=== PATIENT | male | born 1945 | race Caucasian/White ===

== ENCOUNTER 2016-10-03 19:46 | Emergency (ER) | payer MEDICARE, MEDICAID ==
--- NOTE | 2016-10-03 22:47 | EDDOCDS ---
Physician Documentation [facility] Name: Ken Rudd Age: 71 yrs Sex: Male : 1945 Arrival Date: 10/03/2016 Time: 19:46 Bed TR7 Private MD: Maximino Rockwell A. Disposition: 10/03/16 22:33 Discharged to Home/Self Care. Impression: Other abdominal pain - right sided, NOW RESOLVED . - Condition is Stable. - Discharge Instructions: Abdominal Pain, Adult, Constipation, Adult, Shingles. - Prescriptions for Miralax 17 gram/dose - take 17 gram by ORAL route once daily As needed dilute in 8 ounces of water or juice; 1 bottle. - Medication Reconciliation, Local Pharmacy Hours form. - Follow up: Maximino Rockwell; When: Call to arrange an appointment; Reason: Recheck today's complaints, Continuance of care. - Problem is new. - Symptoms are resolved. Historical: - Allergies: no known allergies; - Home Meds: 1. atenolol 100 mg Oral tab 1 tab once daily 2. Norvasc 10 mg Oral tab 1 tab once daily 3. acetaminophen-codeine 300-30 mg Oral tab every 4-6 hours 4. valacyclovir 500 mg Oral tab 5. Cozaar 50 mg Oral tab 1 tab once daily 6. atorvastatin 20 mg oral tab 1 tab once daily 7. hydrochlorothiazide 25 mg Oral tab 1 tab once daily 8. Motrin 800 mg Oral tab 1 tab 3 times per day - PMHx: Hypertension; Hypercholesterolemia; Shingles; - PSHx: none; - Social history: Smoking status: Patient states former smoker of tobacco. No barriers to communication noted, The patient speaks fluent Faroese. - Family history: Not pertinent. - : The pt / caregiver states he / she is not on anticoagulants. Home medication list is obtained from the patient. - Exposure Risk Screening:: None identified. Vital Signs: 10/03 19:47 BP 158 / 75; Pulse 65; Resp 18 S; Temp 97.9; Pulse Ox 99% on R/A; Weight 112.94 kg / dd6 248.99 lbs (R); Height 6 ft. 3 in. (190.50 cm) (R); 19:47 Body Mass Index 31.12 (112.94 kg, 190.50 cm) dd6 MDM: 22:33 Magnesium Citrate Liquid 300 ml PO once; Dispense home with pt. ordered. mo1 Administered Medications: 22:44 Drug: Magnesium Citrate 300 ml [magnesium citrate oral solution (300 mL)] Route: PO; ms2 Signatures: Tommie LooimsRN RN ms2 Sandy Swann RN RN rs3 Parviz Ramos PA PA mo1 MTDD
--- NOTE | 2016-10-03 22:47 | EDDOCDS ---
Nurse's Notes [facility] Name: Ken Rudd Age: 71 yrs Sex: Male : 1945 Arrival Date: 10/03/2016 Time: 19:46 Bed TR7 Private MD: Maximino Rockwell A. Diagnosis: Other abdominal pain-right sided, NOW RESOLVED Presentation: 10/03 19:49 Presenting complaint: Patient states: Was seen [facility]\ [facility] for constipation for rs3 a week. Sent her further work up r/o obstruction. Adult Sepsis Screening: The patient does not have new or worsening altered mentation. Patient's respiratory rate is less than 22. Systolic blood pressure is greater than 100. Patient has a qSOFA score of 0- Negative Sepsis Screen. Suicide/Homicide risk assessment- the patient denies having any suicidal and/or homicidal ideations and does not present with any other emotional, behavioral or mental health complaints. Status: Patient is not a student services representative or dependent. Transition of care: patient was not received from another setting of care. 19:49 Acuity: LYLY Level 3 rs3 19:49 Method Of Arrival: Walkin/Carried/Asstd rs3 Triage Assessment: 19:55 General: Appears in no apparent distress. Pain: Location: abdomen. GI: Reports lower rs3 abdominal pain. Historical: - Allergies: no known allergies; - Home Meds: 1. atenolol 100 mg Oral tab 1 tab once daily 2. Norvasc 10 mg Oral tab 1 tab once daily 3. acetaminophen-codeine 300-30 mg Oral tab every 4-6 hours 4. valacyclovir 500 mg Oral tab 5. Cozaar 50 mg Oral tab 1 tab once daily 6. atorvastatin 20 mg oral tab 1 tab once daily 7. hydrochlorothiazide 25 mg Oral tab 1 tab once daily 8. Motrin 800 mg Oral tab 1 tab 3 times per day - PMHx: Hypertension; Hypercholesterolemia; Shingles; - PSHx: none; - Social history: Smoking status: Patient states former smoker of tobacco. No barriers to communication noted, The patient speaks fluent Botswanan. - Family history: Not pertinent. - : The pt / caregiver states he / she is not on anticoagulants. Home medication list is obtained from the patient. - Exposure Risk Screening:: None identified. Screenin:34 Screening information is obtained from the patient. Fall risk: No risks identified. ms2 Assistance ADL's: requires no assistance with activities of daily living. Abuse/DV Screen: The patient / caregiver reports he/she is: not in a situation that causes fear, pain or injury. Nutritional screening: No deficits noted. Advance Directives: Currently, there is. Advance Directives: Currently, there is no health care proxy. There is no active DNR order. There is no living will. There is no Power of Laundry Or Dry Cleaners Counter Clerk. Advance directive information has not previously been placed in an [facility] medical record. Further advance directive information is declined. home support is adequate. Assessment: 21:33 General: Appears in no apparent distress, Behavior is cooperative. Pain: Denies pain. ms2 Neurological: Level of Consciousness is awake, alert, obeys commands. Respiratory: No deficits noted. Airway is patent Respiratory effort is even, unlabored, Respiratory pattern is regular, symmetrical. GI: Abdomen is non- distended. Derm: Skin is pink, warm & dry. Musculoskeletal: Range of motion intact in all extremities. 22:43 General: Appears in no apparent distress, Behavior is cooperative. Neurological: Level ms2 of Consciousness is awake, alert, obeys commands. Respiratory: No deficits noted. Airway is patent Respiratory effort is even, unlabored, Respiratory pattern is regular, symmetrical. GI: Abdomen is non- distended. Derm: Skin is pink, warm & dry. Musculoskeletal: Range of motion intact in all extremities. Vital Signs: 19:47 BP 158 / 75; Pulse 65; Resp 18 S; Temp 97.9; Pulse Ox 99% on R/A; Weight 112.94 kg (R); dd6 Height 6 ft. 3 in. (190.50 cm) (R); 19:47 Body Mass Index 31.12 (112.94 kg, 190.50 cm) dd6 Vitals: 19:47 Log In Time: October 03, 2016 at 19:45. dd6 ED Course: 19:47 Patient visited by Elver Solitario PCA. dd6 19:47 Maximino Rockwell is Private Physician. dd6 19:47 Patient moved to Waiting dd6 19:48 Patient moved to Pre RCE dd6 19:51 Triage Initiated rs3 21:33 Patient visited by Tommie Loomis RN. ms2 21:33 Patient moved to Triage 2 ms2 21:34 The patient / caregiver is instructed regarding the plan of care and ED course. ms2 21:55 Parviz Ramos PA is PHCP. mo1 21:55 Xavier Bravo DO is Attending Physician. mo1 22:06 Patient visited by Parviz Ramos PA. mo1 22:32 Maximino Rockwell is Referral Physician. mo1 22:36 Patient visited by Tommie Loomis RN. ms2 22:43 Patient moved to TR7 ct3 22:44 The patient / caregiver is instructed regarding the plan of care and ED course. ms2 22:44 No IV's were initiated during this patient's visit. No procedures done that require ms2 assistance. Administered Medications: 22:44 Drug: Magnesium Citrate 300 ml [magnesium citrate oral solution (300 mL)] Route: PO; ms2 Order Results: There are currently no results for this order. Outcome: 22:33 Discharge ordered by Provider. mo1 22:44 Discharge Assessment: patient administered narcotics - no. The following High Risk ms2 Discharge criteria are identified: None. Discharged to home ambulatory. Condition: stable. Discharge instructions given to patient, Instructed on discharge instructions, follow up and referral plans. medication usage, Demonstrated understanding of instructions, medications, Pt was receptive of discharge instructions/ teaching. Prescriptions given X one faxed. No special radiology studies were completed. Property sent home with patient. 22:45 Patient left the ED. ms2 Signatures: Tommie Loomis RN RN ms2 Elver Solitario, RISK MANAGER RISK MANAGER dd6 Sandy Swann RN RN rs3 Iram Brown, RISK MANAGER RISK MANAGER ct3 Parviz Ramos PA PA mo1 MTDD
--- NOTE | 2016-10-05 23:46 | EDDOCDS ---
Physician Documentation [facility] Name: Ken Rudd Age: 71 yrs Sex: Male : 1945 Arrival Date: 10/03/2016 Time: 19:46 Bed TR7 Private MD: Maximino Rockwell A. Disposition: 10/03/16 22:33 Discharged to Home/Self Care. Impression: Other abdominal pain - right sided, NOW RESOLVED . - Condition is Stable. - Discharge Instructions: Abdominal Pain, Adult, Constipation, Adult, Shingles. - Prescriptions for Miralax 17 gram/dose - take 17 gram by ORAL route once daily As needed dilute in 8 ounces of water or juice; 1 bottle. - Medication Reconciliation, Local Pharmacy Hours form. - Follow up: Maximino Rockwell; When: Call to arrange an appointment; Reason: Recheck today's complaints, Continuance of care. - Problem is new. - Symptoms are resolved. Historical: - Allergies: no known allergies; - Home Meds: 1. atenolol 100 mg Oral tab 1 tab once daily 2. Norvasc 10 mg Oral tab 1 tab once daily 3. acetaminophen-codeine 300-30 mg Oral tab every 4-6 hours 4. valacyclovir 500 mg Oral tab 5. Cozaar 50 mg Oral tab 1 tab once daily 6. atorvastatin 20 mg oral tab 1 tab once daily 7. hydrochlorothiazide 25 mg Oral tab 1 tab once daily 8. Motrin 800 mg Oral tab 1 tab 3 times per day - PMHx: Hypertension; Hypercholesterolemia; Shingles; - PSHx: none; - Social history: Smoking status: Patient states former smoker of tobacco. No barriers to communication noted, The patient speaks fluent Danish. - Family history: Not pertinent. - : The pt / caregiver states he / she is not on anticoagulants. Home medication list is obtained from the patient. - Exposure Risk Screening:: None identified. Vital Signs: 10/03 19:47 BP 158 / 75; Pulse 65; Resp 18 S; Temp 97.9; Pulse Ox 99% on R/A; Weight 112.94 kg / dd6 248.99 lbs (R); Height 6 ft. 3 in. (190.50 cm) (R); 19:47 Body Mass Index 31.12 (112.94 kg, 190.50 cm) dd6 MDM: 22:33 Magnesium Citrate Liquid 300 ml PO once; Dispense home with pt. ordered. mo1 22:48 [facility] Payment Agreement was scanned into [employer] and attached to record. jp5 22:48 Financial registration complete. jp5 10/04 12:50 T-Sheet-- Draft Copy was scanned into [employer] and attached to record. gb 12:51 Radiology Report was scanned into [employer] and attached to record. gb Administered Medications: 10/03 22:44 Drug: Magnesium Citrate 300 ml [magnesium citrate oral solution (300 mL)] Route: PO; ms2 Signatures: Tommie LoomisRN RN ms2 Sharon Goss, Reg Reg gb Sandy Swann RN RN rs3 Parviz Ramos PA PA mo1 Patricia Guerin jp5 The chart was reviewed and I authenticate all verbal orders and agree with the evaluation and treatment provided.Attachments: 22:48 [facility] Payment Agreement jp5 10/04 12:50 T-Sheet-- Draft Copy gb Chart Complete MTDD
--- NOTE | 2016-10-05 23:46 | EDDOCDS ---
Physician Documentation [facility] Name: Ken Rudd Age: 71 yrs Sex: Male : 1945 Arrival Date: 10/03/2016 Time: 19:46 Bed TR7 Private MD: Maximino Rockwell A. Disposition: 10/03/16 22:33 Discharged to Home/Self Care. Impression: Other abdominal pain - right sided, NOW RESOLVED . - Condition is Stable. - Discharge Instructions: Abdominal Pain, Adult, Constipation, Adult, Shingles. - Prescriptions for Miralax 17 gram/dose - take 17 gram by ORAL route once daily As needed dilute in 8 ounces of water or juice; 1 bottle. - Medication Reconciliation, Local Pharmacy Hours form. - Follow up: Maximino Rockwell; When: Call to arrange an appointment; Reason: Recheck today's complaints, Continuance of care. - Problem is new. - Symptoms are resolved. Historical: - Allergies: no known allergies; - Home Meds: 1. atenolol 100 mg Oral tab 1 tab once daily 2. Norvasc 10 mg Oral tab 1 tab once daily 3. acetaminophen-codeine 300-30 mg Oral tab every 4-6 hours 4. valacyclovir 500 mg Oral tab 5. Cozaar 50 mg Oral tab 1 tab once daily 6. atorvastatin 20 mg oral tab 1 tab once daily 7. hydrochlorothiazide 25 mg Oral tab 1 tab once daily 8. Motrin 800 mg Oral tab 1 tab 3 times per day - PMHx: Hypertension; Hypercholesterolemia; Shingles; - PSHx: none; - Social history: Smoking status: Patient states former smoker of tobacco. No barriers to communication noted, The patient speaks fluent Croatian. - Family history: Not pertinent. - : The pt / caregiver states he / she is not on anticoagulants. Home medication list is obtained from the patient. - Exposure Risk Screening:: None identified. Vital Signs: 10/03 19:47 BP 158 / 75; Pulse 65; Resp 18 S; Temp 97.9; Pulse Ox 99% on R/A; Weight 112.94 kg / dd6 248.99 lbs (R); Height 6 ft. 3 in. (190.50 cm) (R); 19:47 Body Mass Index 31.12 (112.94 kg, 190.50 cm) dd6 MDM: 22:33 Magnesium Citrate Liquid 300 ml PO once; Dispense home with pt. ordered. mo1 22:48 [facility] Payment Agreement was scanned into [employer] and attached to record. jp5 22:48 Financial registration complete. jp5 10/04 12:50 T-Sheet-- Draft Copy was scanned into [employer] and attached to record. gb 12:51 Radiology Report was scanned into [employer] and attached to record. gb Administered Medications: 10/03 22:44 Drug: Magnesium Citrate 300 ml [magnesium citrate oral solution (300 mL)] Route: PO; ms2 Signatures: Tommie LoomisRN RN ms2 Sharon Goss, Reg Reg gb Sandy Swann RN RN rs3 Parviz Ramos PA PA mo1 Patricia Guerin jp5 The chart was reviewed and I authenticate all verbal orders and agree with the evaluation and treatment provided.Attachments: 22:48 [facility] Payment Agreement jp5 10/04 12:50 T-Sheet-- Draft Copy gb Chart Complete MTDD
--- NOTE | 2016-10-05 23:46 | EDDOCDS ---
Nurse's Notes [facility] Name: Ken Rudd Age: 71 yrs Sex: Male : 1945 Arrival Date: 10/03/2016 Time: 19:46 Bed TR7 Private MD: Maximino Rockwell A. Diagnosis: Other abdominal pain-right sided, NOW RESOLVED Presentation: 10/03 19:49 Presenting complaint: Patient states: Was seen [facility]\ [facility] for constipation for rs3 a week. Sent her further work up r/o obstruction. Adult Sepsis Screening: The patient does not have new or worsening altered mentation. Patient's respiratory rate is less than 22. Systolic blood pressure is greater than 100. Patient has a qSOFA score of 0- Negative Sepsis Screen. Suicide/Homicide risk assessment- the patient denies having any suicidal and/or homicidal ideations and does not present with any other emotional, behavioral or mental health complaints. Status: Patient is not a cdl service technician or dependent. Transition of care: patient was not received from another setting of care. 19:49 Acuity: LYLY Level 3 rs3 19:49 Method Of Arrival: Walkin/Carried/Asstd rs3 Triage Assessment: 19:55 General: Appears in no apparent distress. Pain: Location: abdomen. GI: Reports lower rs3 abdominal pain. Historical: - Allergies: no known allergies; - Home Meds: 1. atenolol 100 mg Oral tab 1 tab once daily 2. Norvasc 10 mg Oral tab 1 tab once daily 3. acetaminophen-codeine 300-30 mg Oral tab every 4-6 hours 4. valacyclovir 500 mg Oral tab 5. Cozaar 50 mg Oral tab 1 tab once daily 6. atorvastatin 20 mg oral tab 1 tab once daily 7. hydrochlorothiazide 25 mg Oral tab 1 tab once daily 8. Motrin 800 mg Oral tab 1 tab 3 times per day - PMHx: Hypertension; Hypercholesterolemia; Shingles; - PSHx: none; - Social history: Smoking status: Patient states former smoker of tobacco. No barriers to communication noted, The patient speaks fluent Congolese. - Family history: Not pertinent. - : The pt / caregiver states he / she is not on anticoagulants. Home medication list is obtained from the patient. - Exposure Risk Screening:: None identified. Screenin:34 Screening information is obtained from the patient. Fall risk: No risks identified. ms2 Assistance ADL's: requires no assistance with activities of daily living. Abuse/DV Screen: The patient / caregiver reports he/she is: not in a situation that causes fear, pain or injury. Nutritional screening: No deficits noted. Advance Directives: Currently, there is. Advance Directives: Currently, there is no health care proxy. There is no active DNR order. There is no living will. There is no Power of Program Eligibility Specialist. Advance directive information has not previously been placed in an [facility] medical record. Further advance directive information is declined. home support is adequate. Assessment: 21:33 General: Appears in no apparent distress, Behavior is cooperative. Pain: Denies pain. ms2 Neurological: Level of Consciousness is awake, alert, obeys commands. Respiratory: No deficits noted. Airway is patent Respiratory effort is even, unlabored, Respiratory pattern is regular, symmetrical. GI: Abdomen is non- distended. Derm: Skin is pink, warm & dry. Musculoskeletal: Range of motion intact in all extremities. 22:43 General: Appears in no apparent distress, Behavior is cooperative. Neurological: Level ms2 of Consciousness is awake, alert, obeys commands. Respiratory: No deficits noted. Airway is patent Respiratory effort is even, unlabored, Respiratory pattern is regular, symmetrical. GI: Abdomen is non- distended. Derm: Skin is pink, warm & dry. Musculoskeletal: Range of motion intact in all extremities. Vital Signs: 19:47 BP 158 / 75; Pulse 65; Resp 18 S; Temp 97.9; Pulse Ox 99% on R/A; Weight 112.94 kg (R); dd6 Height 6 ft. 3 in. (190.50 cm) (R); 19:47 Body Mass Index 31.12 (112.94 kg, 190.50 cm) dd6 Vitals: 19:47 Log In Time: October 03, 2016 at 19:45. dd6 ED Course: 19:47 Patient visited by Elver Solitario PCA. dd6 19:47 Maximino Rockwell is Private Physician. dd6 19:47 Patient moved to Waiting dd6 19:48 Patient moved to Pre RCE dd6 19:51 Triage Initiated rs3 21:33 Patient visited by Tommie Loomis RN. ms2 21:33 Patient moved to Triage 2 ms2 21:34 The patient / caregiver is instructed regarding the plan of care and ED course. ms2 21:55 Parviz Ramos PA is PHCP. mo1 21:55 Xavier Bravo DO is Attending Physician. mo1 22:06 Patient visited by Parviz Ramos PA. mo1 22:32 Maximino Rockwell is Referral Physician. mo1 22:36 Patient visited by Tommie Loomis RN. ms2 22:43 Patient moved to TR7 ct3 22:44 The patient / caregiver is instructed regarding the plan of care and ED course. ms2 22:44 No IV's were initiated during this patient's visit. No procedures done that require ms2 assistance. 22:48 [facility] Payment Agreement was scanned into [employer] and attached to record. jp5 10/04 12:50 T-Sheet-- Draft Copy was scanned into [employer] and attached to record. gb 12:51 Radiology Report was scanned into [employer] and attached to record. gb Administered Medications: 10/03 22:44 Drug: Magnesium Citrate 300 ml [magnesium citrate oral solution (300 mL)] Route: PO; ms2 Order Results: There are currently no results for this order. Outcome: 22:33 Discharge ordered by Provider. mo1 22:44 Discharge Assessment: patient administered narcotics - no. The following High Risk ms2 Discharge criteria are identified: None. Discharged to home ambulatory. Condition: stable. Discharge instructions given to patient, Instructed on discharge instructions, follow up and referral plans. medication usage, Demonstrated understanding of instructions, medications, Pt was receptive of discharge instructions/ teaching. Prescriptions given X one faxed. No special radiology studies were completed. Property sent home with patient. 22:45 Patient left the ED. ms2 Signatures: Tommie Loomis,GOMEZ RN ms2 Sharon Goss, Reg Reg gb Elver Solitario, VAN DRIVER VAN DRIVER dd6 Sandy Swann RN RN rs3 Iram Brown, VAN DRIVER VAN DRIVER ct3 Parviz Ramos PA PA mo1 [place] Patricia jp5 Chart Complete MTDD
== END 2016-10-03 22:45 | disposition home or self-care (01) ==
LOC: M ED 19:46
DX: K59.00 Constipation, unspecified (principal); I10 Essential (primary) hypertension; E78.00 Pure hypercholesterolemia, unspecified; Z86.19 Personal history of other infectious and parasitic diseases; Z79.899 Other long term (current) drug therapy; Z87.891 Personal history of nicotine dependence
CPT/HCPCS: 74022; 99283; G0463

== ENCOUNTER → 2016-10-03 | Outpatient (CLI) | payer MEDICARE, MEDICAID ==
--- NOTE | 2016-10-03 19:42 | REP ---
Abdominal series 10/03/2016: Indication: Constipation. Comparison : None. PA chest: The cardiac silhouette is of normal size. There is mild aneurysmal dilatation descending thoracic aorta as well as tortuosity. Lungs are clear bilaterally. Free subdiaphragmatic air cannot be excluded on the submitted images. Impression: Cardiac silhouette is of normal size. 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 Lungs are clear bilaterally. Costophrenic angles partially omitted from view however. Free subdiaphragmatic air is not excluded. Consider evaluation in the emergency department. Further imaging with CT may be considered. Case discussed with NAEL Ross at 650 pm on 10/03/16. Flat and upright KUB 10/03/2016: There is distension of ascending colon, 8.2 cm transverse dimension. Free subdiaphragmatic air cannot be excluded on the provided images. Due to body habitus the diaphragms are incompletely included in field of view. 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 Impression: Distended ascending colon with lack of haustral markings and/ or edema. Free subdiaphragmatic air cannot be excluded on the submitted images. Recommend evaluation in the emergency department, with consideration of further imaging. Signed by Pauline Abrams MD 10/06/2016 10:45 A
== END ==
LOC: M LRY 17:11
PROVIDERS: ATTEND Nurse Practitioner Family
DX: K63.89 Other specified diseases of intestine (principal)

== ENCOUNTER → 2017-09-18 | Outpatient (CLI) | payer MEDICARE, MEDICAID ==
[2017-09-18 13:03] LABS: ANION GAP 8 MEQ/L (8-16); BLOOD UREA NITROGEN 21 MG/DL (7-18); CALCIUM LEVEL 9.1 MG/DL (8.8-10.2); CARBON DIOXIDE LEVEL 32 MEQ/L (21-32); CHLORIDE LEVEL 97 MEQ/L (98-107); CREATININE FOR GFR 1.53 MG/DL (0.70-1.30); GLOMERULAR FILTRATION RATE 47.6 (>42); GLUCOSE, FASTING 120 MG/DL (83-110); SODIUM LEVEL 137 MEQ/L (136-145)
== END ==
LOC: M LAB 11:57
DX: Z01.812 Encounter for preprocedural laboratory examination (principal); Z01.810 Encounter for preprocedural cardiovascular examination; I44.0 Atrioventricular block, first degree; I11.9 Hypertensive heart disease without heart failure; S82.841A Displaced bimalleolar fracture of right lower leg, initial encounter for closed fracture; X58.XXXA Exposure to other specified factors, initial encounter; Y92.89 Other specified places as the place of occurrence of the external cause; Y93.89 Activity, other specified; Y99.8 Other external cause status
CPT/HCPCS: 93005

== ENCOUNTER 2017-09-25 14:41 | Day surgery (SDC) | payer MEDICARE, MEDICAID ==
[2017-09-25] MEDS ORDERED: ceFAZolin 2 GM/D5W 50 ML IV BAG (J0690 PER 500MG) As Ordered ×2 (15:01)
[2017-09-25] MEDS: LR 1,000 ML IV ×6 (15:30→21:44)
[2017-09-25 15:40] LABS: ANION GAP 9 MEQ/L (8-16); BLOOD UREA NITROGEN 31 MG/DL (7-18); CALCIUM LEVEL 9.7 MG/DL (8.8-10.2); CARBON DIOXIDE LEVEL 31 MEQ/L (21-32); CHLORIDE LEVEL 100 MEQ/L (98-107); CREATININE FOR GFR 2.01 MG/DL (0.70-1.30); GLOMERULAR FILTRATION RATE 34.7 (>42); GLUCOSE, FASTING 127 MG/DL (83-110); POTASSIUM SERUM 3.4 MEQ/L (3.5-5.1); SODIUM LEVEL 140 MEQ/L (136-145)
[2017-09-25] MEDS ORDERED: fentaNYL 100 MCG/2 ML INJECTION (J3010) As Ordered ×2 (17:48)
[2017-09-25] MEDS ORDERED: MIDAZOLAM INJ 2 MG/2 ML VIAL (J2250) As Ordered ×2 (17:48)
[2017-09-25] MEDS: ceFAZolin 1GM INJ (J0690 PER 500MG) As Ordered ×2 (17:52)
[2017-09-25] MEDS ORDERED: fentaNYL 100 MCG/2 ML INJECTION (J3010) IV ×2 (20:15)
[2017-09-25] MEDS ORDERED: ONDANSETRON 4MG/2ML VIAL (J2405) IV ×2 (20:15)
[2017-09-25] MEDS ORDERED: NORCO, ANEXSIA 5/325MG TABLET (HYDROcodone/ACETAMINOPHEN) PO ×2 (20:15)
[2017-09-25] MEDS: NORCO, ANEXSIA 5/325MG TABLET (HYDROcodone/ACETAMINOPHEN) PO ×2 (23:30)
[2017-09-26] MEDS: MORPHINE 4 MG/ML 1ML SYRINGE IV ×2 (02:37)
[2017-09-26] MEDS: LR 1,000 ML IV ×2 (06:59)
[2017-09-26] MEDS: hydroCHLOROthiazide 25 MG TAB PO ×2 (07:29)
[2017-09-26] MEDS: METOPROLOL SUCC (TopROL XL) 100MG *XL* TAB PO ×2 (07:30)
[2017-09-26] MEDS: amLODIPine 10 MG TAB PO ×2 (07:30)
== END 2017-09-26 13:53 | disposition home or self-care (01) ==
LOC: M SDC 14:41 → M MS5PR 20:35
DX: S82.841A Displaced bimalleolar fracture of right lower leg, initial encounter for closed fracture (principal); W00.0XXA Fall on same level due to ice and snow, initial encounter; Y92.531 Health care provider office as the place of occurrence of the external cause; Y93.01 Activity, walking, marching and hiking; Y99.8 Other external cause status; M16.11 Unilateral primary osteoarthritis, right hip; I10 Essential (primary) hypertension; E87.6 Hypokalemia; N52.9 Male erectile dysfunction, unspecified; L71.9 Rosacea, unspecified; Z87.891 Personal history of nicotine dependence; Z79.899 Other long term (current) drug therapy
CPT/HCPCS: 27814

== ENCOUNTER → 2024-11-10 | Outpatient (REF) | payer MEDICARE, MEDICAID ==
[~2024-11-10] MED LIST: AMLO25TA PO; ATOR1TAB21 PO; HYDR12.55 PO; IBUP-1114 PO; LOSA50TA28 PO; MIRA3350 PO; POTA-165 PO; TOPR100T PO
[2024-11-10 21:17] LABS: BLOOD UREA NITROGEN 16 MG/DL (9-23); CALCIUM LEVEL 9.3 MG/DL (8.3-10.6); CARBON DIOXIDE LEVEL 28 MMOL/L (20-31); CHLORIDE LEVEL 103 MMOL/L (98-107); CREATININE FOR GFR 1.22 MG/DL (0.70-1.30); GLOMERULAR FILTRATION RATE > 60.0 (>35); GLUCOSE, FASTING 87 MG/DL (74-106); MAGNESIUM LEVEL 1.9 MG/DL (1.8-2.4); POTASSIUM SERUM 2.9 MMOL/L (3.5-5.1); SODIUM LEVEL 143 MMOL/L (136-145)
== END ==
LOC: M LABWUC 16:23
PROVIDERS: ATTEND Family Medicine
DX: E78.6 Lipoprotein deficiency (principal)